=== PATIENT | female | born 1975 | race Asian ===

== ENCOUNTER 2017-01-14 14:43 | Emergency (ER) | payer OTHER, SELFPAY ==
[2017-01-14] MEDS ORDERED: Fluorescein Opthalmic Strip ONE (14:52)
[2017-01-14] MEDS ORDERED: Tetracaine HCl 0.5% Ophth Soln 2 ML Bottle ONE (14:52)
== END 2017-01-14 15:22 | disposition home or self-care (01) ==
LOC: BURERS 14:43
DX: T15.12XA Foreign body in conjunctival sac, left eye, initial encounter (principal); F17.200 Nicotine dependence, unspecified, uncomplicated
CPT/HCPCS: 65205

== ENCOUNTER 2017-03-20 11:13 | Emergency (ER) | payer OTHER ==
[2017-03-20] MEDS ORDERED: methylPREDNISolone Sod Succ/PF 125 MG/2 ML VIAL ONE (11:40)
== END 2017-03-20 12:00 | disposition home or self-care (01) ==
LOC: BURERS 11:13
DX: R21 Rash and other nonspecific skin eruption (principal); J45.909 Unspecified asthma, uncomplicated; F17.200 Nicotine dependence, unspecified, uncomplicated; Z79.899 Other long term (current) drug therapy
CPT/HCPCS: 96372; J2930

== ENCOUNTER 2017-08-27 10:10 | Emergency (ER) | payer OTHER | END 2017-08-27 10:39 | disposition home or self-care (01) | LOC: BURERS 10:10 | DX: J01.90 Acute sinusitis, unspecified (principal); J45.909 Unspecified asthma, uncomplicated; F17.200 Nicotine dependence, unspecified, uncomplicated; Z79.899 Other long term (current) drug therapy | CPT/HCPCS: 99283 ==

== ENCOUNTER 2017-08-29 05:46 | Emergency (ER) | payer OTHER ==
[2017-08-29] MEDS ORDERED: predniSONE 20 MG TAB ONE (06:32)
[2017-08-29] MEDS ORDERED: HYDROcodone/Acetaminophen 10/325 mg Tablet ONE (06:32)
== END 2017-08-29 06:40 | disposition home or self-care (01) ==
LOC: BURERS 05:46
DX: J06.9 Acute upper respiratory infection, unspecified (principal); J45.909 Unspecified asthma, uncomplicated; Z79.899 Other long term (current) drug therapy
CPT/HCPCS: 99283; J7506